=== PATIENT | female | born 2000 | race Caucasian/White ===

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

== ENCOUNTER 2019-01-14 00:21 | Observation (INO) ==
[2019-01-14] MEDS ORDERED: Ondansetron 4 MG/2 ML VIAL IVP PRN ×2 (02:45→17:30)
[2019-01-14] MEDS: 0.9 % Sodium Chloride 1,000 ML IVC SCH ×4 (03:10→23:42)
[2019-01-14] MEDS: Acetaminophen IV 1,000 MG/100 ML INFUS..BTL IVPB SCH ×4 (05:57→23:38)
[2019-01-14] MEDS ORDERED: Pantoprazole 40 MG VIAL IVP SCH (06:30)
[2019-01-14] MEDS ORDERED: Famotidine 20 MG/2 ML VIAL IVP ONE (14:31)
[2019-01-14] MEDS ORDERED: Scopolamine Patch 1.5 MG PATCH.TD72 TD STA (14:32)
[2019-01-14] MEDS ORDERED: Acetaminophen IV 1,000 MG/100 ML INFUS..BTL IVPB ONE ×2 (14:33→17:30)
[2019-01-14] MEDS ORDERED: Clindamycin 900 MG/50 ML 900 MG/50 ML IV.SOLN IVPB ONE ×3 (14:48→17:30)
[2019-01-14] MEDS ORDERED: Famotidine 20 MG/2 ML VIAL ONE (14:55)
[2019-01-14] MEDS ORDERED: cefOXitin 1,000 MG, 0.9 % Sodium Chloride 1,000 ML IR ONE ×2 (15:00→17:30)
[2019-01-14] MEDS ORDERED: CefOXitin 1,000 MG VIAL ONE (15:48)
[2019-01-14] MEDS ORDERED: Isovue-300 50ML VIAL ONE (15:49)
[2019-01-14] MEDS ORDERED: *HR* FentaNYL (PF) 100 MCG/2 ML VIAL ONE (15:53)
[2019-01-14] MEDS ORDERED: *HR* Propofol 200 MG/20 ML VIAL IVP ONE (15:53)
[2019-01-14] MEDS ORDERED: *HR* Midazolam HCl 2 MG/2 ML VIAL ONE (15:53)
[2019-01-14] MEDS ORDERED: *HR* Rocuronium Bromide 50 MG/5 ML VIAL ONE (15:55)
[2019-01-14] MEDS ORDERED: Lidocaine -MPF 2% 2 ML VIAL ONE (15:55)
[2019-01-14] MEDS ORDERED: Lidocaine HCL 4 ML Topical Solution (Laryng-O-Jet Kit Sterile Pak) TP ONE (15:55)
[2019-01-14] MEDS ORDERED: Ondansetron 4 MG/2 ML VIAL ONE (16:20)
[2019-01-14] MEDS ORDERED: Dexamethasone 4 MG/ML VIAL ONE (16:20)
[2019-01-14] MEDS ORDERED: *HR* HYDROMORPHONE 2 MG/ML VIAL ONE (16:53)
[2019-01-14] MEDS ORDERED: Ketorolac 30 MG/ML VIAL ONE (16:56)
[2019-01-14] MEDS ORDERED: Neostigmine Methylsulfate 3 MG/3 ML SYRINGE ONE (16:56)
[2019-01-14] MEDS ORDERED: *HR* Meperidine 25 MG/ML SYRINGE IVP PRN (17:41)
[2019-01-14] MEDS ORDERED: *HR* Promethazine 25 MG/ML VIAL IVP PRN (17:41)
[2019-01-14] MEDS ORDERED: Ondansetron 4 MG/2 ML VIAL IVP ONE (17:41)
[2019-01-14] MEDS: *HR* HYDROmorphone (PF) 1 MG/ML SYRINGE IVP PRN ×2 (17:55→18:00)
[2019-01-15] MEDS: Pantoprazole 40 MG VIAL IVP SCH (05:17)
[2019-01-15] MEDS: Acetaminophen IV 1,000 MG/100 ML INFUS..BTL IVPB SCH ×4 (05:17→23:38)
[2019-01-15 08:47] LABS: Albumin 3.9 g/dL (3.5-5.7); Albumin/Globulin Ratio 1.4 (1.1-2.2); Bilirubin,Direct 2.5 mg/dL (0.0-0.2); Bilirubin,Indirect 1.4 mg/dL (0.0-1.0); Bilirubin,Total 3.9 mg/dL (0.3-1.0); Globulin 2.7 g/dL (2.4-3.5); Total Protein 6.6 g/dL (6.4-8.9)
[2019-01-15] MEDS: 0.9 % Sodium Chloride 1,000 ML IVC SCH ×2 (12:08→21:39)
[2019-01-15] MEDS ORDERED: Morphine Sulfate 2 MG/ML SYRINGE IVP ONE (13:42)
[2019-01-16] MEDS: Pantoprazole 40 MG VIAL IVP SCH (05:35)
[2019-01-16] MEDS: Acetaminophen IV 1,000 MG/100 ML INFUS..BTL IVPB SCH ×4 (05:35→23:39)
[2019-01-16] MEDS: 0.9 % Sodium Chloride 1,000 ML IVC SCH ×3 (05:35→23:38)
[2019-01-16 07:35] LABS: Albumin 3.5 g/dL (3.5-5.7); Albumin/Globulin Ratio 1.5 (1.1-2.2); Bilirubin,Direct 1.3 mg/dL (0.0-0.2); Bilirubin,Indirect 1.1 mg/dL (0.0-1.0); Bilirubin,Total 2.4 mg/dL (0.3-1.0); Globulin 2.3 g/dL (2.4-3.5); Total Protein 5.8 g/dL (6.4-8.9)
[2019-01-16] MEDS ORDERED: CEFOXITIN IVPB ONE (09:16)
[2019-01-16] MEDS ORDERED: SODIUM CHLORIDE 0.9% IVPB ONE (09:16)
[2019-01-16] MEDS ORDERED: Fluticasone Propionate Nasal 50 MCG/SPRAY BOTTLE NS PRN (09:29)
[2019-01-16] MEDS ORDERED: Famotidine 20 MG/2 ML VIAL IVP PRN (09:30)
[2019-01-16 10:05] LABS: Basophils % 0.5 %; Eosinophils # 0.1 K/mcL (0.0-0.6); Eosinophils % 1.5 %; Hematocrit 37.7 % (35.3-44.9); Hemoglobin 12.6 g/dL (11.5-15.4); Immature Granulocytes % 3.4 % (0-4); Lymphocytes % 22.8 %; Mean Corpuscular HGB Conc 33.4 g/dL (31.6-35.5); Mean Corpuscular Hemoglobin 29.4 pg (28.0-33.3); Mean Corpuscular Volume 88.1 fL (83.0-100.0); Mean Platelet Volume 11.3 fL (9.4-12.4); Monocytes # 0.7 K/mcL (0.0-1.3); Monocytes % 8.3 %; Nucleated Red Blood Cells 0.2 /100 WBC (0); Platelet Count 192 K/mcL (140-400); Red Blood Count 4.28 M/mcL (3.82-4.97); Red Cell Distribution Width 13.9 % (11.5-14.5); Segmented Neutrophils % 63.5 %; White Blood Count 8.6 K/mcL (4.3-11.1)
[2019-01-16 10:07] LABS: Neutrophils # 5.5 K/mcL (1.6-8.9)
[2019-01-16 10:28] LABS: Platelet Estimate Normal (Normal)
[2019-01-16 13:01] LABS: BUN/Creatinine Ratio 4 (6-26); Blood Urea Nitrogen 3 mg/dL (6-20); Calcium 8.4 mg/dL (8.6-10.3); Carbon Dioxide 22 mEq/L (23-29); Chloride 108 mEq/L (98-107); Glucose 93 mg/dL (70-105); Osmolality,Calculated 284 (280-300); Sodium 139 mEq/L (136-145); eGFR For African Americans > 60; eGFR For Non-African Americans > 60
[2019-01-16] MEDS: Ketorolac 15 MG/ML VIAL IVP SCH ×2 (15:01→21:11)
[2019-01-16] MEDS: *HR* Heparin 5,000 UNIT/ML VIAL SQ SCH (18:06)
[2019-01-17] MEDS: Ketorolac 15 MG/ML VIAL IVP SCH ×2 (03:10→09:07)
[2019-01-17] MEDS: Acetaminophen IV 1,000 MG/100 ML INFUS..BTL IVPB SCH ×2 (05:49→12:11)
[2019-01-17] MEDS: Pantoprazole 40 MG VIAL IVP SCH (05:50)
[2019-01-17] MEDS: *HR* Heparin 5,000 UNIT/ML VIAL SQ SCH (05:53)
[2019-01-17 06:41] LABS: Basophils % 0.3 %; Eosinophils # 0.1 K/mcL (0.0-0.6); Eosinophils % 1.9 %; Hematocrit 36.9 % (35.3-44.9); Hemoglobin 12.1 g/dL (11.5-15.4); Immature Granulocytes % 0.3 % (0-4); Lymphocytes # 1.7 K/mcL (0.6-4.6); Lymphocytes % 25.4 %; Mean Corpuscular HGB Conc 32.8 g/dL (31.6-35.5); Mean Corpuscular Volume 88.5 fL (83.0-100.0); Mean Platelet Volume 10.1 fL (9.4-12.4); Monocytes # 0.6 K/mcL (0.0-1.3); Monocytes % 9.6 %; Neutrophils # 4.2 K/mcL (1.6-8.9); Platelet Count 255 K/mcL (140-400); Red Blood Count 4.17 M/mcL (3.82-4.97); Red Cell Distribution Width 13.8 % (11.5-14.5); Segmented Neutrophils % 62.5 %; White Blood Count 6.7 K/mcL (4.3-11.1)
[2019-01-17 07:11] LABS: BUN/Creatinine Ratio 5 (6-26); Blood Urea Nitrogen 3 mg/dL (6-20); Calcium 8.7 mg/dL (8.6-10.3); Carbon Dioxide 26 mEq/L (23-29); Chloride 105 mEq/L (98-107); Glucose 92 mg/dL (70-105); Osmolality,Calculated 286 (280-300); Potassium 3.4 mEq/L (3.5-5.1); Sodium 140 mEq/L (136-145); eGFR For African Americans > 60; eGFR For Non-African Americans > 60
[2019-01-17 07:12] LABS: Albumin 3.2 g/dL (3.5-5.7); Albumin/Globulin Ratio 1.3 (1.1-2.2); Bilirubin,Direct 0.3 mg/dL (0.0-0.2); Bilirubin,Indirect 0.6 mg/dL (0.0-1.0); Bilirubin,Total 0.9 mg/dL (0.3-1.0); Globulin 2.4 g/dL (2.4-3.5); Total Protein 5.6 g/dL (6.4-8.9)
[2019-01-17] MEDS: 0.9 % Sodium Chloride 1,000 ML IVC SCH ×2 (09:09→12:05)
[2019-01-17 11:42] VITALS: BP 128/84
[2019-01-17] MEDS ORDERED: Ibuprofen 800 MG TABLET PO ONE (13:24)
[2019-01-17] MEDS ORDERED: *HR* OxyCODONE/APAP 5/325 TABLET PO PRN (13:24)
== END 2019-01-17 16:00 | disposition home or self-care (01) ==
LOC: 3BNU
PROVIDERS: ADMIT Surgery; ATTEND Surgery